=== PATIENT | female | born 1960 | race Caucasian/White ===

== ENCOUNTER 2018-11-27 17:23 | Observation (INO) ==
--- NOTE | 2018-11-27 17:50 | PROVIDER DOCUMENTATION ---
HPI-Abdominal Pain/GI Problem - General Chief Complaint: Abdominal Pain Stated Complaint: ABD PAIN Time Seen by Provider: 11/27/18 17:45 Source: patient Allergies/Adverse Reactions: Patient Allergies Allergy/AdvReac Type Severity Reaction Status Date / Time Penicillins Allergy ANAPHYLAXIS Verified 11/27/18 18:47 Home Medications: Home Medication List Medication Instructions Recorded Confirmed Last Taken Type Aspirin [Adult Aspirin] 1 tab PO DAILY 11/27/18 11/27/18 11/26/18 History Biotin [Hard Nails] 1 tab PO DAILY 11/27/18 11/27/18 11/26/18 History Escitalopram [Lexapro] 1 tab PO DAILY 11/27/18 11/27/18 11/26/18 History Hydrocodone/Acetaminophen 1 tab PO Q4-6H PRN PRN 11/27/18 11/27/18 1 Week Ago History [Hydrocodone-Acetamin 7.5-325] ~11/20/18 Levothyroxine [Synthroid] 1 tab PO DAILY 11/27/18 11/27/18 11/26/18 History Mv-Mn/Iron/FA/Herbal Cmplx#190 1 tab PO DAILY 11/27/18 11/27/18 11/26/18 History [Vitamin D3 Complete Caplet] Omeprazole [Prilosec] 1 tab PO PRN PRN 11/27/18 11/27/18 11/27/18 History Potassium Bicarbonate/Cit AC 1 tab PO DAILY 11/27/18 11/27/18 11/26/18 History [Potassium 25 Meq Tablet Eff] - History of Present Illness-ABD Nature of Presenting Problems: pt c/o chronic abdominal pain since gastric bypass surgery a few years ago, pt states it is worse today, pt reports similar symptoms today that were much more sever in pain and accompanied by N/V/D. pt reports pain as severe at this time. pt does not appear toxic. Abdominal Pain Onset Location: reports: LUQ, epigastric, generalized abdomen Severity in ED: reports: moderate, severe Onset/Duration: reports: other (chronic but but worse today) Timing: reports: still present, intermittent Activities at Onset: reports: none Exposure to sick contacts?: No Modifying Factors: improves with: nothing Associated Symptoms: reports: diarrhea, nausea, vomiting. denies: fatigue, fever/chills, heartburn, joint pain Last BM: this afternoon Dark Stools Present?: reports: none noticed Rectal Bleeding: reports: none Emesis Description: reports: none Bruising or Bleeding Gums?: Yes Similar Symptoms Previously?: Yes Recently seen or treated by another doctor?: Yes Review of Systems - Adult - REVIEW OF SYSTEMS - ADULT Constitutional: reports: no symptoms reported Eyes: reports: no symptoms reported Ears, Nose, Mouth & Throat: reports: no symptoms reported Cardiovascular: reports: no symptoms reported Respiratory: reports: no symptoms reported Gastrointestinal: reports: see HPI Genitourinary: reports: no symptoms reported Musculoskeletal: reports: no symptoms reported Integumentary: reports: no symptoms reported Neurological: reports: no symptoms reported Psychiatric: reports: no symptoms reported Endocrine: reports: no symptoms reported Hematologic/Lymphatic: reports: no symptoms reported Allergic/Immunologic: reports: no symptoms reported All Other Systems: Reviewed and Negative Past History - Adult - PAST MEDICAL HISTORY-ADULT Review of Records: reports: Old Records Reviewed, Nursing Assessment Review, Medications Reviewed Major Childhood Illnesses: reports: denies history Cardiovascular: reports: denies history Gastrointestinal: reports: other (chronic abdominal pain since gastric bypass 7 years ago.) - FAMILY HISTORY Family History: reviewed, not pertinent - SOCIAL HISTORY Smoking: denies Substance Use: none/never Alcohol Use Frequency: never Physical Exam-General - PHYSICAL EXAM-ADULT Initial Vital Signs Reviewed: Yes - CONSTITUTIONAL General Appearance: appears well, alert, moderate distress, obese - EYES Eyes: PERRL/EOMI, pink conjunctivae. negative: photophobia, sclera injected, scleral icterus - HEAD, EARS, NOSE, MOUTH & THROAT HENMT: normocephalic/atraumatic, moist mucous membranes, normal ENT inspection - NECK Neck: non-tender, full range of motion - RESPIRATORY Respiratory: chest non-tender, lungs clear, normal breath sounds - CARDIOVASCULAR Cardiovascular: normal peripheral pulses, regular rate, rhythm, no edema, no gallop, no JVD - GASTROINTESTINAL (ABDOMEN) Abdominal Exam: distended, tenderness (generalized tenderness to palpation, worse in upper abdomen) - LYMPHATIC Lymphatic: no adenopathy - MUSCULOSKELETAL Back Exam: normal inspection, no CVA tenderness Extremity: normal range of motion, non-tender, normal gait - SKIN Integumentary: normal color, normal turgor, warm/dry - NEUROLOGIC Neurologic: grossly normal, no motor/sensory deficits. negative: facial droop, focal weakness, motor weakness, sensory deficit - PSYCHIATRIC Psych/Mental Status: normal mood/affect, normal thought content, normal thought process, oriented x 3 Progress - PLAN OF CARE/RESULTS Progress/Plan/Lab Results: Vital Signs - 8 hr 11/27/18 17:35 Temperature 97.4 F L Pulse Rate 62 Respiratory Rate 20 Blood Pressure 158/78 O2 Sat by Pulse Oximetry 100 Orders Category Date Time Status Saline Loc DIRECTED Care 11/27/18 17:46 Active NPO Diet 11/27/18 17:46 Active AMYLASE [CHEM] Stat Lab 11/27/18 17:46 Ordered CBC WITH ELECTRONIC DIFF [HEME] Stat Lab 11/27/18 17:46 Ordered COMPREHENSIVE METABOLIC PANEL [CHEM] Stat Lab 11/27/18 17:46 Ordered LIPASE [CHEM] Stat Lab 11/27/18 17:46 Ordered URINALYSIS W/POSS RFLX CULT [URINALYSIS] Stat Lab 11/27/18 17:46 Uncollected discussed with patient diagnosis and pt agreed with admission and POC Result Diagrams: 11/27/18 17:45 11/27/18 17:45 - REASSESSMENT Reassessment #1 Status: unchanged Reassessment Comment: pt still nauseated and in pain - CT/MRI 1 CT Study: Abdomen, Pelvis Impression: Abnormal CT Results: multiple incidental findings w possible illius - CONSULTS/PCP/HOSPITALIST Notification #1 *Consult/PCP/Hospitalist*: Dr Donovan Time Discussed: 20:59 Reason/Comments: admit to Dr Donovan Consult Disposition: Admit Departure - Departure Date of Disposition Decision: 11/27/18 Time of Disposition Decision: 21:00 DIAGNOSIS: Ileus, Nausea & vomiting Disposition: ADMITTED INPATIENT 09 Certified Medical Emergency: Emergent Condition: Stable Referrals and Follow-Ups: Georgi Mg MD [Primary Care Provider] - - Critical Care Note This patient required my direct & personal management of CC.: No Attestation - Physician/ FE Attestation Patient care was provided by Advanced Practice Provider:: Yes Advanced Practice Provider:: Dariana Barrios Advanced Practice Provider documentation review:: The Mid-level provider d ocumentation, treatment plan and medical decision making was reviewed by the physician who agrees with all treatment and medical decision making by the MLP. The physician spent face to face time with patient:: No Advanced Practice Provider documentation review:: Supervising physician onsite and consulted in the evaluation and care of this patient. The physician did not have a face to face encounter with the patient.
[2018-11-27 17:59] LABS: URINE SOURCE CLEAN CATCH
[2018-11-27 18:01] LABS: BASO# 0.02 X1000 (0.0-0.2); BASO% 0.2 % (0.0-0.8); EOS# 0.17 X1000 (0.0-0.7); EOS% 1.5 % (0.0-10.0); HEMATOCRIT 33.2 % (37.0-47.0); IMM GRAN# 0.03 X1000 (0.0-0.04); IMM GRAN% 0.3 % (0.0-0.5); LYMPH# 2.25 X1000 (1.2-3.4); LYMPH% 19.8 % (20.5-51.1); MCH 22.9 PG (27-31); MCHC 30.1 g/dL (33-37); MONO# 0.95 X1000 (0.11-0.59); MONO% 8.3 % (1.7-9.3); MPV 10.5 FL (7.4-10.4); NEUT# 7.97 X1000 (1.4-6.5); NEUT% 69.9 % (42.2-75.2); PLT 331 X1000 (130-400); RBC 4.37 XMIL (4.2-5.4); RDW 18.9 % (11.5-14.5); WBC 11.39 X1000 (4.8-10.8)
[2018-11-27 18:05] LABS: BILIRUBIN URINE SMALL (NEGATIVE); BLOOD URINE NEGATIVE (NEGATIVE); COLOR YELLOW; GLUCOSE URINE NEGATIVE (NEGATIVE); KETONE URINE TRACE mg/dL (NEGATIVE); LEUKOCYTES URINE NEGATIVE (NEGATIVE); NITRITE URINE NEGATIVE (NEGATIVE); PROTEIN URINE 70 mg/dL (NEGATIVE); SP GRAVITY URINE 1.041; TURBIDITY URINE HAZY (CLEAR); UR EPITHELIAL CELLS >10 /HPF (<10); URINE BACTERIA 1+ /HPF; URINE RBC <10 /HPF (<10); URINE WBC <10 /HPF (<10); UROBILINOGEN URINE 4 mg/dL (NORMAL)
[2018-11-27 18:14] LABS: AGAP 15; ALB/GLOB RATIO 1.5; ALBUMIN 4.4 g/dL (3.5-5.0); ALKALINE PHOSPHATASE 79 U/L (32-104); AMYLASE 32 U/L (20-200); BUN 10 mg/dL (8-22); CALCIUM 9.2 mg/dL (8.8-10.2); CHLORIDE 101 mmol/L (98-107); COSMO 274; CREATININE 0.7 mg/dL (0.5-0.9); ESTIMATED GFR > 60; GLUCOSE 112 mg/dL (70-104); GOT 29 U/L (10-30); GPT 17 U/L (10-36); LIPASE 36 U/L (13-60); POTASSIUM 4.5 mmol/L (3.5-5.1); SODIUM 137 mmol/L (136-145); TCO2 21 mmol/L (25-35); TOTAL PROTEIN 7.4 g/dL (6.3-8.3)
[2018-11-27] MEDS ORDERED: MORPHINE IV ONE (19:08)
[2018-11-27] MEDS ORDERED: ZOFRAN IV ONE (19:08)
[2018-11-27] MEDS ORDERED: NS 1,000 ML IV ONE (19:08)
--- NOTE | 2018-11-27 19:56 | Diag Imaging Result Doc PS360 ---
EXAM: CT ABD/PELVIS W/IV CONT ONLY INDICATION: abd pain TECHNIQUE: This exam was performed using automated exposure control, adjustment of mA or kV according to patient size, and/or use of iterative reconstruction technique. COMPARISON: None. FINDINGS: There is mild subsegmental atelectasis at the lung bases. There has been a prior cholecystectomy. There are a couple of small low dense foci involving the right hepatic lobe that are nonspecific. The largest is on image 40 of series 4 measuring up to 1.4 cm. There is no obvious enhancement. It is possible that they represent cysts containing proteinaceous debris. There is low dense thickening involving the right adrenal gland that statistically most likely represents an underlying adrenal adenoma. The left adrenal gland is unremarkable. The spleen and pancreas are unremarkable. There is a small right renal cyst. The kidneys are unremarkable, otherwise. The urinary bladder is unremarkable. The reproductive tract is unremarkable as imaged. The appendix is not identified. There is no secondary sign of appendicitis. There is evidence of a prior gastric bypass. Staple lines are associated with the stomach as well as loops of small bowel in the left side of the abdomen. There are a few gas-filled loops of small bowel on the left without significant distention. This could represent mild ileus. There is no obstructive bowel pattern. The remainder of the GI tract is essentially unremarkable. No focal inflammatory changes, free abdominal gas, or free fluid is identified. IMPRESSION: 1.A few loops of bowel containing gas but no significant distention. Consider mild ileus, perhaps related to enteritis. 2.Other incidental/nonacute findings detailed above. Electronically signed by Juanjose Nelson 11/27/2018 7:53 PM
[2018-11-28] MEDS ORDERED: PRILOSEC PO PRN (00:03)
[2018-11-28] MEDS ORDERED: DUONEB (A & A) INH PRN (00:03)
[2018-11-28] MEDS ORDERED: ZOFRAN IV PRN (00:03)
--- NOTE | 2018-11-28 01:09 | HISTORY AND PHYSICAL ---
PRIMARY CARE PHYSICIAN: Dr. Mg. CHIEF COMPLAINT: Abdominal pain, nausea, vomiting x1 day. HISTORY OF PRESENTING ILLNESS: A 58-year-old female with a history of COPD who had presented to the emergency department with a 1-day history of having abdominal pain and nausea, vomiting. The patient states that she has been having intermittent symptoms for the past 7 years after her gastric bypass, but usually it resolves pretty quick. However, this time it was persistent and subsequently she had come to the emergency department. In the ED, she was evaluated. She had imaging done which did show a possible ileus. Subsequently, due to her presenting symptoms it was thought that we will place her for observation for further evaluation and management. At the time of my examination, patient denied any headache, fever, chills, chest pain, shortness of breath or any weight changes, but complained of abdominal pain. PAST MEDICAL HISTORY: Includes COPD. PAST SURGICAL HISTORY: Gastric bypass, cholecystectomy. ALLERGIES: Penicillin. CURRENT MEDICATIONS: Aspirin 81 mg p.o. daily, Lexapro 20 mg p.o. daily, [place] 7.5 mg p.o. q.6 hours, levothyroxine 50 mcg 1 p.o. daily, omeprazole 40 mg p.o. daily. SOCIAL HISTORY: She is a former smoker. No history of alcohol use. Admits to occasional marijuana use. FAMILY HISTORY: Positive for coronary artery disease in father. REVIEW OF SYSTEMS: Fourteen point review of systems as listed in HPI. Other systems negative. PHYSICAL EXAMINATION: GENERAL: Cooperative, friendly female. She is resting more comfortably now. VITAL SIGNS: Temperature 97.4 degrees, pulse 62, respirations 20, blood pressure 158/78. HEENT: Atraumatic, normocephalic. Extraocular movements intact. PERRLA. NECK: No masses. CHEST: Clear to auscultation. CARDIOVASCULAR: Regular rate and rhythm. ABDOMEN: Soft. Some mild tenderness. EXTREMITIES: No edema. NEUROLOGIC: She is awake, alert, oriented x3. GENITOURINARY: No bladder distention. SKIN: Warm. LABORATORIES AND STUDIES: WBC 11.39, hemoglobin 10.1, hematocrit 33.2, platelets 331,000. Sodium 137, potassium 4.5, chloride 101, CO2 is 21, BUN is 10, creatinine 0.7, glucose 112. UA is nitrite negative. Abdominal CT shows few loops of bowels containing gas but no significant distention, consider mild ileus. ASSESSMENT: A 58-year-old female with a history of chronic obstructive pulmonary disease that had presented to emergency department with 1-day history of having worsening abdominal pain, nausea and vomiting. She was evaluated in the emergency department. She had imaging done which did show a possible ileus. Subsequently, we will place her for observation for further evaluation and management. 1. Abdominal pain. 2. Suspected ileus. 3. Chronic obstructive pulmonary disease. PLAN: 1. We will admit patient to medical floor with telemetry. 2. Keep patient NPO. We will continue with supportive treatment with IV fluids, antiemetics. 3. Continue with DuoNebs p.r.n. 4. Put patient on DVT prophylaxis with SCD. 5. We will continue to follow, and reassess and make further recommendation based on the patient's clinical course. cc: Amari Donovan MD
[2018-11-28] MEDS: NS 1,000 ML IV SCH ×2 (01:39→14:21)
[2018-11-28] MEDS ORDERED: SYNTHROID PO SCH ×2 (07:00→21:00)
[2018-11-28 07:17] LABS: BASO# 0.01 X1000 (0.0-0.2); BASO% 0.2 % (0.0-0.8); EOS# 0.22 X1000 (0.0-0.7); EOS% 3.3 % (0.0-10.0); HEMATOCRIT 29.3 % (37.0-47.0); HEMOGLOBIN 8.6 g/dL (12.0-16.0); LYMPH# 1.52 X1000 (1.2-3.4); LYMPH% 23.1 % (20.5-51.1); MCH 22.6 PG (27-31); MCHC 29.4 g/dL (33-37); MCV 76.9 FL (81-99); MONO# 0.47 X1000 (0.11-0.59); MONO% 7.1 % (1.7-9.3); MPV 11.5 FL (7.4-10.4); NEUT# 4.36 X1000 (1.4-6.5); NEUT% 66.3 % (42.2-75.2); PLT 287 X1000 (130-400); RBC 3.81 XMIL (4.2-5.4); RDW 18.7 % (11.5-14.5); WBC 6.58 X1000 (4.8-10.8)
[2018-11-28 07:35] VITALS: BP 112/39
[2018-11-28 07:44] LABS: AGAP 12; BUN 6 mg/dL (8-22); CALCIUM 8.8 mg/dL (8.8-10.2); CHLORIDE 105 mmol/L (98-107); COSMO 277; CREATININE 0.5 mg/dL (0.5-0.9); ESTIMATED GFR > 60; GLUCOSE 107 mg/dL (70-104); POTASSIUM 4.4 mmol/L (3.5-5.1); SODIUM 140 mmol/L (136-145); TCO2 23 mmol/L (25-35)
[2018-11-28] MEDS ORDERED: LEXAPRO PO SCH ×2 (09:00→21:00)
[2018-11-28 09:38] LABS: IRON SATURATION 11 %; TIBC 422 ug/dL; TOTAL IRON 46 ug/dL (49-151); UNBOUND IRON 376 ug/dL (112-346)
[2018-11-28 09:56] LABS: FERRITIN 12 ng/mL (13-150)
--- NOTE | 2018-11-28 17:34 | GASTROENTEROLOGY CONSULTATION ---
DATE: 11/28/2018 REASON FOR CONSULTATION: Abdominal pain. HISTORY OF PRESENT ILLNESS: This is a 58-year-old, female who reports onset of symptoms over the last several days. It became so severe that she had to come into the emergency room. She reported nausea with several episodes of vomiting. She has had episodes of diarrhea. Patient reports she has had issues ever since her gastric bypass that was done about [address] Martinez. She states often times she will have episodes of pain and it will usually resolve on its own. She states it happens pretty frequently but she usually knows what to do but this time symptoms persisted and she had to come in to the emergency room. On evaluation, a CT scan had showed loops of bowel containing gas but no significant distention, questionable ileus versus enteritis. Patient states she has had an EGD done in the past by Dr. Hawthorne. I am not sure when her last colonoscopy was. PAST MEDICAL HISTORY: COPD. PAST SURGICAL HISTORY: Gastric bypass 7 years ago. Cholecystectomy. ALLERGIES: Penicillin causing anaphylaxis. HOME MEDICATIONS: Aspirin daily, biotin daily. Lexapro daily, hydrocodone/acetaminophen 7.5/325 every 4 to 6 hours as needed. Levothyroxine 1 tablet daily. Multivitamin with vitamin D daily. Prilosec 1 as needed, potassium bicarbonate daily. SOCIAL HISTORY: Former smoker, She works for [employer]. Reports occasional marijuana use. REVIEW OF SYSTEMS: Per history of present illness. PHYSICAL EXAMINATION: Vital Signs: Temperature 98.7 degrees, pulse 65, respirations 27, blood pressure 112/39. General: Patient is awake and alert. At the time my evaluation, she is still reporting some abdominal pain. HEENT: Normocephalic, atraumatic. Pupils equal, round, reactive to light. Sclerae nonicteric. Respiratory: Lung sounds clear bilaterally. Cardiovascular: Regular rate and rhythm. Abdomen: Soft with some tenderness noted. Extremities: No lower extremity edema noted. Neurological: Cranial nerves II-XII grossly intact. Patient is awake, alert, oriented to person, place, and time. LABORATORY: Hematology 6.58, hemoglobin 8.6, hematocrit 29.3, MCV 76.9, platelets 287,000. Chemistry: Sodium 140, potassium 4.4, chloride 105, CO2 of 23, BUN 6, creatinine 0.5, glucose 107, calcium 8.8. Iron 46, TIBC 422%, saturation 11, ferritin 12, liver function tests are normal. Amylase 32, lipase 36. Vitamin B12, 345 vitamin D 38.9, folate 12.1, abdominal pelvis CT scan showing loops of small bowel containing gas but no significant distention. Possible ileus versus enteritis. ASSESSMENT AND PLAN: 1. Abdominal pain. 2. Possible enteritis versus ileus. 3. History of gastric bypass. Possibility of herniation of the small bowel that causes the pain and then resolves. PLAN: I would recommend bowel rest, symptomatic treatment. Fluids. We will allow sips of liquids and ice chips. Further plans will be made according to her progress. I have discussed this case with Dr. Dela Cruz. Thank you for this consultation. Dictated by MIRIAN Rubin for Moi Dela Cruz MD cc: MIRIAN Ferro MD
--- NOTE | 2018-11-28 17:52 | DISCHARGE SUMMARY ---
ADMISSION DATE: 11/27/2018 DISCHARGE DATE: 11/28/2018 DISPOSITION: Home. FOLLOWUP: With patient's PCP, Dr. Mg, and with Dr. Dela Cruz. CONSULTATIONS DURING THIS ADMISSION: GI was consulted. INVESTIGATIVE PROCEDURES DONE DURING THIS ADMISSION: None. IMAGING STUDIES OF SIGNIFICANCE: CT scan of the abdomen showed a few loops of bowel containing gas but no significant distention, consider mild ileus perhaps related to enteritis. ADMISSION DIAGNOSES: 1. Abdominal pain, suspected ileus. 2. Chronic obstructive pulmonary disease. DIAGNOSES AT TIME OF DISCHARGE: 1. Abdominal pain secondary to enteritis with associated ileus. 2. Status post gastric bypass surgery. 3. Multiple vitamin and mineral deficiencies as a result of gastric bypass surgery. The patient is on daily supplements. 4. Microcytic anemia secondary to iron deficiency. 5. History of chronic obstructive pulmonary disease, currently not in exacerbation. 6. Obesity with body mass index of 34.3. DISCHARGE MEDICATIONS: 1. Aspirin 81 mg daily. 2. Biotin 1 tablet daily. 3. Escitalopram 20 mg p.o. daily. 4. Multivitamin. 5. Omeprazole 40 mg p.o. daily. 6. Potassium bicarbonate with citrate. 7. Levothyroxine 50 mcg p.o. daily. 8. [place]ar[place]-Colace 1 tablet daily. 9. Ferrous sulfate 325 mg b.i.d. PRESENTING COMPLAINTS: Abdominal pain, nausea and vomiting. HISTORY OF PRESENTING COMPLAINT: Ms. Monique is a 58-year-old female who presented to the emergency department because of abdominal pain, nausea and vomiting. She has a history of gastric bypass surgery a couple of years ago, and since then she has been having multiple GI-related symptoms. Upon presenting to the emergency department, she underwent a CT scan of the abdomen and pelvis which revealed some enteritis with ileus. Ms. Monique was admitted for further medical care. HOSPITAL COURSE: Ms. Monique was admitted to the medical floor and was kept n.p.o. and fluid resuscitated, and her pain was managed. During the course of the hospital stay, she improved overnight. This morning when I saw her, she was no more in pain and no more nauseated. We ordered a regular diet for her, which she tolerated. She feels well. She says she thinks she will be okay going home. All her lab work seems to be within normal ranges except for macrocytic anemia. Iron studies revealed remarkable iron deficiency. She has been started on iron therapy. Ms. Monique was also advised to follow up with Dr. Dela Cruz since she has not had any further care after her gastric bypass surgery. Other discharge instructions have been discussed with her, and she voiced understanding. There was no family member at the bedside at the time of the discharge. Time spent for discharge: 36 minutes. cc: MD Georgi Serrano MD Khurshid Yousuf, MD MTDD
== END 2018-11-28 18:20 | disposition home or self-care (01) ==
LOC: ED 17:23 → SUATTDRO 23:22 → 3N 23:22 → INTOOBSV 23:22
PROVIDERS: ATTEND Internal Medicine